=== PATIENT | female | born 1970 | race Caucasian/White ===

== ENCOUNTER 2020-12-10 20:58 | Emergency (ER) | payer MEDICAID ==
[~2020-12-10] VITALS: Ht 160 cm; Wt 55.0 kg
--- NOTE | 2020-12-10 21:20 | NUR ---
assessment made. seen by PA. patient highly intoxicated to alcohol. Dog was taken by [employer]. patient had a GLF and sustained last contusion on left side of forehead , abrasions noted. denies neck pain.
--- NOTE | 2020-12-10 21:21 | NUR ---
patient was placed by [employer] on legal hold for unable to care for self.
--- NOTE | 2020-12-10 21:34 | NUR ---
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
[2020-12-10 21:52] LABS: BASOPHILS % (AUTO) 1 % (0-1); EOSINOPHILS % (AUTO) 1 % (1-7); LYMPHOCYTES % (AUTO) 38 % (22-44); MEAN CORPUSCULAR HEMOGLOBIN 32.2 pg (27.0-34.8); MEAN CORPUSCULAR HGB CONC 33.4 g/dL (32.4-35.8); MEAN PLATELET VOLUME 7.1 fL (7.4-10.4); MONOCYTES % (AUTO) 6 % (2-9); NEUTROPHILS % (AUTO) 53 % (42-75); PLATELET COUNT 288 x10^3/uL (130-400); RED BLOOD COUNT 4.75 x10^6/uL (3.82-5.3); RED CELL DISTRIBUTION WIDTH 15.9 % (9.6-15.2)
[2020-12-10 21:53] LABS: MD NO
--- NOTE | 2020-12-10 21:59 | NUR ---
back from CT scan. awaiting result.
[2020-12-10 22:01] LABS: ALBUMIN 4.4 g/dL (3.4-5.0); ANION GAP 8 mmol/L (5-15); CALCIUM 8.4 mg/dL (8.5-10.1); CHLORIDE 109 mmol/L (98-107)
--- NOTE | 2020-12-10 22:03 | NUR ---
X ray at bedside.
[2020-12-10 22:13] LABS: ALANINE AMINOTRANSFERASE 104 U/L (12-78); ALKALINE PHOSPHATASE 73 U/L (45-117); BILIRUBIN,TOTAL 0.2 mg/dL (0.2-1.0); TOTAL PROTEIN 8.1 g/dL (6.4-8.2)
[2020-12-10 22:23] LABS: SALICYLATE LEVEL < 1.7 mg/dL (2.8-20.0)
--- NOTE | 2020-12-10 22:38 | NUR ---
patient's receipt for animal control at [facility] checklist.
--- NOTE | 2020-12-10 23:19 | NUR ---
patient awake. water provided.
--- NOTE | 2020-12-11 01:15 | NUR ---
patient sleeping. warm blankets provided.
--- NOTE | 2020-12-11 02:19 | NUR ---
PA at bedside for re-evaluation.
--- NOTE | 2020-12-11 03:41 | NUR ---
no changes. sitter at the door. blanket provided.
--- NOTE | 2020-12-11 05:22 | NUR ---
patient sleeping, respiration unlabored. Sitter at the door.
[2020-12-11] MEDS ORDERED: NEOSPORIN OINT. PKT 1 PACKET ONE (06:42)
--- NOTE | 2020-12-11 06:50 | NUR ---
wound cleaned. patient alert and oriented. ambulatory. discharged with instruction. verbalized understanding.
[2020-12-11 06:51] VITALS: BP 127/81
== END 2020-12-11 06:53 | disposition home or self-care (01) ==
LOC: ED 12-11
DX: S00.81XA Abrasion of other part of head, initial encounter (principal); M25.561 Pain in right knee; F10.229 Alcohol dependence with intoxication, unspecified; W01.0XXA Fall on same level from slipping, tripping and stumbling without subsequent striking against object, initial encounter; Y93.89 Activity, other specified; Y92.89 Other specified places as the place of occurrence of the external cause; Y99.8 Other external cause status
CPT/HCPCS: 36415; 70450; 80053; 80299; 80320; 80329; 84443; 84703; 85025; 99285; G0480